=== PATIENT | female | born 1935 | race Caucasian/White ===

== ENCOUNTER → 2017-02-14 | Outpatient (CLI) | payer OTHER ==
[2016-10-07 10:35] VITALS: BP 129/64
[~2017-02-14] MED LIST: ACET325T21 PO; BUPIVACAINE MPF 0.5% 10 ML VIAL for KCIC. IJ ONE; CALC-56 PO; CONTRAST GIVEN MC PRN; DOCU100C5 PO; DOFE250C PO; GLUC1CAP48 PO; HYDR-971 PO; IOHEXOL 300 MG/ML 50 ML VIAL. INT ART ONE; LETR2.5T18 PO; LIDOCAINE 1% Multi-Dose 20 ML VIAL. ID ONE; LORA1TAB47 PO; METO25TA4 PO; MULT1TAB97 PO; UBID200C27 PO; VENL37.5 PO; VITA1CAP PO; methylPREDNISolone ACETATE 40 MG/ML VIAL. INT ART ONE
--- NOTE | 2017-02-14 16:59 | KCIC ---
PROCEDURE Therapeutic right hip injection using fluoroscopic guidance. HISTORY Hip pain. TECHNIQUE The procedure was explained to the patient as were potential risks, including infection, bleeding or allergic reaction. All questions were answered. Informed written and verbal consent was obtained. The hip was prepped and draped in the usual sterile manner. Following administration of local anesthetic, a 22-gauge spinal needle was advanced into the hip joint without difficulty, with care taken to avoid the vascular structures. Stylet was removed and following negative aspiration, a mixture of 4 cc Omnipaque-300, 2 cc (80 mg) Depo-Medrol, 4 cc 0.5% Marcaine and 4 cc 1% lidocaine were injected without difficulty. Fluoroscopy demonstrates uniform and satisfactory distribution of the injection through the hip. The needle was removed. There was good hemostasis at the injection site. The patient left in stable condition without immediate complication. The patient was given postprocedural instructions, instructed to contact us or the emergency room if there are any complications. A single spot image was obtained. FLUOROSCOPY TIME: 34 seconds Electronically signed by: Hussain Peterson MD (Feb 14, 2017 16:58:04)
== END | disposition home or self-care (01) ==
LOC: KCIC 12:14
PROVIDERS: ATTEND Nurse Practitioner Gerontology
DX: M25.551 Pain in right hip (principal); G89.29 Other chronic pain
CPT/HCPCS: 20610; 77002; J1030; Q9967

== ENCOUNTER → 2017-03-14 | Outpatient (CLI) | payer OTHER ==
[2016-10-07 10:35] VITALS: BP 129/64
[~2017-03-14] MED LIST changes: -BUPIVACAINE MPF 0.5% 10 ML VIAL for KCIC. IJ ONE; -CONTRAST GIVEN MC PRN; -IOHEXOL 300 MG/ML 50 ML VIAL. INT ART ONE; -LIDOCAINE 1% Multi-Dose 20 ML VIAL. ID ONE; -methylPREDNISolone ACETATE 40 MG/ML VIAL. INT ART ONE
--- NOTE | 2017-03-14 12:57 | RAD ---
PROCEDURE MRI lumbar spine without contrast. HISTORY Low back pain and right groin pain for 4 months. TECHNIQUE Sagittal T1, sagittal T2, sagittal STIR, axial T1, and axial T2 sequences are provided. COMPARISON None. FINDINGS There are multiple T1 hypointense lesions suspicious for metastatic disease or myeloma. There are lesions noted in the vertebral bodies at the levels of T10, T11, T12, L2, L3, L4, L5, and in the S1 and S2 segments of the sacrum. There is also involvement of the posterior elements on the right and left at L2-L3. There are lesions in the included pelvis. There is no pathologic fracture. There is no malalignment. There is no marrow edema. Vertebral body height is maintained. There is diffuse disc desiccation. The conus medullaris is normal in signal intensity and in position. The numbering system assumes 5 lumbar type vertebral bodies. Findings by individual level are as follows: T10-T11: There is a disc bulge and facet hypertrophy without canal or foraminal compromise. T11-T12: Disc bulge and facet hypertrophy are noted without canal or foraminal compromise. T12-L1: Mild disc bulge and facet hypertrophy are noted without canal or foraminal compromise. L1-L2: Mild disc bulge and mild facet hypertrophy are noted. Facet hypertrophy is greater on the right. There is no canal stenosis or foraminal compromise. L2-L3: Minimal disc bulge and facet hypertrophy are noted without canal or foraminal compromise. L3-L4: Mild disc bulge and jmbm-gd-xaeihxyd facet and ligamentum flavum hypertrophy are noted. Canal stenosis is noted with midline AP diameter of the thecal sac narrowed to 10 millimeters. There is mild lateral recess narrowing. There is minimal right foraminal narrowing. L4-L5: Disc bulge and moderate facet hypertrophy are noted. There is ligamentum flavum hypertrophy. Midline AP diameter of the thecal sac is narrowed to 10 millimeters. There is mild lateral recess narrowing. There is mild left and minimal right foraminal narrowing. L5-S1: Disc osteophyte complex and facet hypertrophy are noted with moderate left and [id number]-ti-[id number] right foraminal narrowing. There is no canal stenosis. Carol, nurse for Dr. Kuo, was notified of results at 1225 hours. IMPRESSION - Multiple T1 hypointense lesions throughout the lower thoracic spine, lumbar spine, sacrum, and pelvis compatible with either metastatic disease or myeloma. - Degenerative changes in the lumbar spine without any high-grade canal stenosis. Electronically signed by: Ramesh Reyna MD (Mar 14, 2017 12:55:54)
== END | disposition home or self-care (01) ==
LOC: MRI 12:40
PROVIDERS: ATTEND Family Medicine
DX: M48.06 Spinal stenosis, lumbar region (principal); M47.896 Other spondylosis, lumbar region
CPT/HCPCS: 72148

== ENCOUNTER → 2017-03-20 | Outpatient (CLI) | payer OTHER ==
[2016-10-07 10:35] VITALS: BP 129/64
--- NOTE | 2017-03-20 17:06 | RAD ---
Radionuclide bone scan, 03/20/2017: History: Breast cancer staging, back pain Whole body imaging was performed following IV injection of 24 mCi of technetium 99m MDP. No previous bone scan is available at this time for comparison purposes. The following findings are delineated: 1. There are multiple foci of abnormal activity in the bony pelvis on both sides. This is most prominent in the right ischial region extending to the acetabulum. 2. There are multiple foci of abnormal activity in the thoracic and lumbar spine. 3. Small areas of increased activity are seen in both proximal femurs. 4. There is a focus of increased activity in the calvarium posteriorly on the right. 5. Additional areas of mildly increased activity at both shoulders, wrists and the left knee are probably on an arthritic basis. IMPRESSION: Multifocal abnormalities compatible with osseous metastatic disease with involvement of the bony pelvis, spine, calvarium and proximal femurs as described above.
== END | disposition home or self-care (01) ==
LOC: NM 09:39
PROVIDERS: ATTEND Family Medicine
DX: C41.9 Malignant neoplasm of bone and articular cartilage, unspecified (principal); Z85.3 Personal history of malignant neoplasm of breast
CPT/HCPCS: 78306; 96374; A9503

== ENCOUNTER → 2017-04-04 | Outpatient (CLI) | payer OTHER ==
[~2017-04-04] VITALS: Ht 152.4 cm; Wt 72.6 kg
[2017-04-04] VITALS (10 sets, daily range): BP systolic 105–146; BP diastolic 58–79
[~2017-04-04] MED LIST changes: +HEPARIN PF 500 UNIT/5 ML DISP.SYRIN. IV ONE; +LIDOCAINE 1% / SOD BICARB 8.4% 20 ML VIAL. IJ ONE; +MIDAZOLAM HCL/PF 5 MG/5 ML VIAL. IV ONE; +WARF5TAB7 PO; +fentaNYL PF VIAL 250 MCG/5 ML VIAL IV ONE
[2017-04-04 09:08] LABS: BASO # 0.1 x10^3/uL (0.0-0.2); BASO % 1 % (0-3); EOS % 4 % (0-3); HEMATOCRIT 38.1 % (36.0-47.0); HEMOGLOBIN 12.9 g/dL (12.0-15.5); LYMPH # 1.5 x10^3/uL (1.0-4.8); LYMPH % 24 % (24-48); MEAN CORPUSCULAR HEMOGLOBIN 30 pg (25-35); MEAN CORPUSCULAR HGB CONC 34 g/dL (31-37); MEAN CORPUSCULAR VOLUME 87 fL (79-100); MONO % 7 % (0-9); NEUT % 65 % (31-73); PLATELET COUNT 185 x10^3/uL (140-400); RED BLOOD COUNT 4.37 x10^6/uL (3.50-5.40); RED CELL DISTRIBUTION WIDTH 14.8 % (11.5-14.5); WHITE BLOOD COUNT 6.2 x10^3/uL (4.0-11.0)
[2017-04-04 09:17] LABS: INR 1.2 (0.8-1.1); PROTHROMBIN TIME PATIENT 14.2 SEC (11.7-14.0)
--- NOTE | 2017-04-04 12:28 | PDOC ---
MODERATE SEDATION ASSESSMENT RISKS/ALTERNATIVES Risks/Alternatives Risks and alternatives of this type of sedation and procedure discussed with: RISK/ALTERNATIVES: Patient H & P ON CHART H & P H & P on chart and reviewed for co-morbid conditions and appropriate labs. H&P ON CHART: Yes STATUS PREG STATUS ASSESSED: N/A MEDS/ALLERGIES REVIEWED Meds/Allergies Reviewed Medications and Allergies including time and route of recently administered narcotics and sedatives. MEDS/ALLERGIES REVIEWED: Yes ASA RATING ASA RATING: III AIRWAY ASSESSMENT Airway Assessment Airway patency, oral function limitations, presence of caps, crowns, dentures, partials, and ability to extend neck assessed. AIRWAY ASSESSMENT: Yes MALLAMPATI SCORE MALLAMPATI SCORE: III PRE-SEDATION ASSESSMENT PRE-SEDATION ASSESSMENT: Yes GATO BARBER MD April 04, 2017 12:28
--- NOTE | 2017-04-04 12:34 | PDOC1 ---
History and Physical Date of Procedure Date of Admission 04/04/[address] guided bone bx Indication Indication 81 YO female with invasive lobular breast carcinoma dx in 2006. S/P radical left mastectomy, XRT, and chemotx. Now with multifocal bone lesions, suggesting met disease. Past Medical History Past Medical History See Nursing Pre Procedure PMH Past Surgical History Past Surgical History See Nursing Pre Procedure PSH Current Medications Current Medications Current Medications Lidocaine/Sodium Bicarbonate (Buffered Lidocaine 1%) 20 ml STK-MED ONCE IJ ; Start 04/04/17 at 11:23; Stop 04/04/17 at 11:24; Status DC Lidocaine/Sodium Bicarbonate (Buffered Lidocaine 1%) 20 ml 1X ONCE IJ Last administered on 04/04/17 12:16; Start 04/04/17 at 12:15; Stop 04/04/17 at 12:16 ; Status DC Midazolam HCl (Versed) 5 mg 1X ONCE IV Last administered on 04/04/17 12:17; Start 04/04/17 at 12:15; Stop 04/04/17 at 12:16; Status DC Fentanyl Citrate (Fentanyl 5ml Vial) 250 mcg 1X ONCE IV Last administered on 12:16; Start 04/04/17 at 12:15; Stop 04/04/17 at 12:16; Status DC Active Scripts Active [place] 5-325 Tablet (Acetaminophen/Hydrocodone Bitart) 1 Each Tablet 0.5-1 Tab PO PRN Q6HRS PRN Reported Warfarin Sodium 5 Mg Tablet 5 Mg PO DAILY Metoprolol Tartrate 25 Mg Tablet 12.5 Mg PO BID Claritin-D 12 Hour Tablet (Loratadine/Pseudoephedrine) 1 Each Tab.er.12h 1 Tab PO BID PRN Femara (Letrozole) 2.5 Mg Tablet 1 Tab PO DAILY Glucosamine & Chondroitin Cap (Gluc 2KCL/Chondr/Herrera Hy/Hy Ac) 1 Each Capsule 1 Each PO DAILY Docusate Sodium 100 Mg Capsule 1 Cap PO DAILY Coenzyme Q-10 (Ubidecarenone) 200 Mg Capsule 200 Mg PO DAILY Calcium 500 + Vit D 200 Caplet (Calcium Carbonate/Vitamin D3) 1 Each Tablet 1 Each PO Acetaminophen 325 Mg Tablet 325 Mg PO PRN Vitamin B Complex 1 Each Capsule 1 Each PO Effexor Xr (Venlafaxine Hcl) 37.5 Mg Cap.er.24h 1 Cap PO DAILY Tikosyn (Dofetilide) 250 Mcg Capsule 250 Mcg PO BID Daily Multiple Vitamin (Multivitamin) 1 Each Tablet 1 Each PO DAILY Allergies Allergies: Coded Allergies: No Known Drug Allergies (Unverified , 10/07/16) Physical Exam Vital Signs Vital Signs Date Time Temp Pulse Resp B/P (MAP) Pulse Ox O2 Delivery O2 Flow Rate FiO2 04/04/17 12:16 10 97 Nasal Cannula 2.0 04/04/17 12:13 88 04/04/17 09:39 124/69 (87) Lungs: Clear to auscultation Heart: Regular rate Psych/Mental Status: Mental status NL Diagnostic Data/Imaging Images PMC WBBS from 03/20/17 reviewed. 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 Problems: Plan Plan CT guided bx of right ischium lytic destructive bony lesion, markedly positive on bone scan. GATO BARBER MD April 04, 2017 12:33
--- NOTE | 2017-04-04 12:38 | PDOC ---
Exam Game Show Host Game Show Host Zabrina Occupational Health Nursing Director Occupational Health Nursing Director Isabelle Cates Pre-Procedure Diagnosis Pre-Procedure Diagnosis 81 YO female with invasive lobular breast cancer (dx in 2007). s/p radical mastectomy, XRT, and chemotx. Now with multifocal bone lesions, suggesting metastatic disease. Post-Procedure Diagnosis Post-Procedure Diagnosis Same Procedure Performed Procedure Performed CT guided bx of lytic, destructive right ischial lesion, which is markedly positive on bone scan. Type of Anesthesia Type of Anesthesia Local + Mod sedation Estimated Blood Loss EBL: Minimal Specimens Specimans 1 14G core bx to path in formalin Condition of Patient Condition of Patient Stable. No apparent complication. Disposition Disposition Home from [facility] post recovery, if no problems. F/u with Dr Ayala. Full report to follow. GATO BARBER MD April 04, 2017 12:38
--- NOTE | 2017-04-04 14:07 | RAD ---
CT-guided power drill assisted biopsy of posterior right ischial lytic/destructive bone lesion Indication: 81-year-old female diagnosed with invasive lobular breast cancer in 2006. She is status post radical mastectomy, XRT, and chemotherapy. She now has multiple bone lesions, suggesting widespread osseous metastatic disease. CT-guided bone biopsy has been requested by oncology. Anesthesia: 17 minutes moderate sedation was provided utilizing a total of 2 mg Versed and 100 mcg fentanyl, IV. The patient was appropriately monitored by a qualified independent observer throughout the time of moderate sedation. Procedure: Informed consent was obtained from the patient. She was placed prone on the CT scanner. Preliminary noncontrast CT images were obtained through pelvis. Those images confirmed the presence of a lytic, destructive lesion involving posterior aspect of right ischium. Of note, this lesion was markedly positive on a [facility] whole body bone scan done 03/20/2017. A right posterior skin site suitable for CT-guided biopsy of the lytic/destructive posterior left ischium lesion was selected and marked. That area was prepped and draped in the usual sterile fashion. Conscious sedation was provided with IV Versed and fentanyl. Using aseptic technique, local anesthesia, and CT guidance, and the [employer] power tractor sweeper driver, successful percutaneous entry was achieved through posterior cortex of left ischium. Using CT guidance, the [employer] power tractor sweeper driver was then utilized to obtain a single, 11-gauge core biopsy sample from the destructive posterior left ischial lesion. The biopsy sample was submitted to pathology in formalin. A sterile dressing was applied over the biopsy skin puncture site. Patient tolerated the procedure well without apparent complication. Impression: Successful, uneventful CT-guided bone biopsy, utilizing the [employer] power tractor sweeper driver biopsy system, as described. PQRS compliance statement: One or more of the following individualized dose reduction techniques were utilized for this CT procedure: 1. Automated exposure control. 2. Adjustment of MA and/or KV according to patient size. 3. Iterative reconstruction technique.
--- NOTE | 2017-04-09 08:46 | PATHOLOGY ---
PATHOLOGY REPORT * * * * * * * * FINAL DIAGNOSIS: Bone, right ischium, biopsy: - METASTATIC MODERATELY DIFFERENTIATED ADENOCARCINOMA (please see comment). COMMENT: The morphologic features of the tumor in this case are consistent with a metastatic lobular carcinoma, as the tumor cells are focally arranged in a single file pattern and some of the tumor cells contain intracytoplasmic lumina. This patient's previous breast carcinoma slides from her surgery back in 2006 are not available at this institution for review/comparison. Estrogen and progesterone receptor status will be performed by immunohistochemistry on the tumor cells in tissue block A1. The results will be issued in an addendum report. This case has also been reviewed by Dr. Alexis Erickson M.D., who agrees with the diagnosis. The findings in this case were discussed with Dr. Chin Gerber on 04/08/2017. PROCEDURE REPORT (Order Date: 04/09/2017 00:00) INTERPRETATION: Quantitative image analysis was performed on block A1. Please see next page for scanned image of results. COMMENT: PATHOLOGIST: Amparo Ladd M.D. REPORT ELECTRONICALLY SIGNED BY: Amparo Ladd M.D. DATE/TIME: 04/11/2017 16:06 REPORT ELECTRONICALLY SIGNED BY: Chiqui Treadwell M.D. DATE/TIME: 04/09/2017 08:46 * * * * * * * * GROSS PATHOLOGY: Received in formalin labeled "Heydi Will, right ischial bone biopsy," is a single needle core of jain bone, measuring 1.9 cm in length and 0.2 cm in diameter. The specimen is submitted entirely in cassette A1, following decalcification. (CAA; 04/06/2017) INITIAL CPT CODE(S): A; 01254, 49953(2) Professional services performed by [facility], [address] [facility], [place] [address]. Technical services performed by [facility], [address] [place] [address], [address], [place] [address]. SPECIMEN(S) RECEIVED: A.Bone right ischium CLINICAL HISTORY: Invasive lobular breast cancer 2006, now lytic bone lesions, mastectomy, radiation and chemotherapy PATIENT: HEYDI WILL /AGE: 1 1935 (Age: 81) PATIENT #: [id number] ALT CASE #: SPECIMEN COLLECTION DATE: 04/04/2017 SPECIMEN RECEIVED DATE: 04/04/2017 [facility] - [id number] [place] [address] - PHONE: [phone] * * * END OF REPORT * * *
== END | disposition home or self-care (01) ==
LOC: INTRAD 08:37
PROVIDERS: ATTEND Internal Medicine Hematology & Oncology
DX: M89.9 Disorder of bone, unspecified (principal); Z85.3 Personal history of malignant neoplasm of breast; I48.91 Unspecified atrial fibrillation; F41.9 Anxiety disorder, unspecified; Z86.73 Personal history of transient ischemic attack (TIA), and cerebral infarction without residual deficits; Z90.710 Acquired absence of both cervix and uterus; Z87.39 Personal history of other diseases of the musculoskeletal system and connective tissue; Z86.69 Personal history of other diseases of the nervous system and sense organs
CPT/HCPCS: 20225; 36415; 77012; 85027; 85610; 88307; 88361; C1892; J2250; J3010

== ENCOUNTER → 2017-04-07 | Outpatient (CLI) | payer OTHER ==
[2017-04-04 09:17] VITALS: BP 124/69
[~2017-04-07] MED LIST changes: +CONTRAST GIVEN MC PRN; +GADOBUTROL 7.5 MMOL/7.5 ML VIAL IV ONE; +IOHEXOL 240 MG/ML 50ML VIAL. PO ONE; +IOHEXOL 300 MG/ML 75 ML VIAL IV ONE; -LIDOCAINE 1% / SOD BICARB 8.4% 20 ML VIAL. IJ ONE; -MIDAZOLAM HCL/PF 5 MG/5 ML VIAL. IV ONE; +OXYC5TAB PO; +WARF-78 PO; +WARF2.5T83 PO; -fentaNYL PF VIAL 250 MCG/5 ML VIAL IV ONE
--- NOTE | 2017-04-07 10:55 | RAD ---
Examination: CT chest abdomen pelvis with oral and IV contrast History: History of breast cancer staging. Comparison: CT chest from 05/26/2014 Technique: Axial CT images of the chest abdomen pelvis were performed with IV contrast. Coronal and sagittal reformats performed Oral contrast was used for CT of the abdomen pelvis PQRS Compliance Statement: One or more of the following individualized dose reduction techniques were utilized for this examination: 1. Automated exposure control 2. Adjustment of the mA and/or kV according to patient size 3. Use of iterative reconstruction technique Findings: A right-sided Port-A-Cath is identified. Mild cardiomegaly. Coronary artery calcifications identified. Moderate size hiatal hernia is identified. Minimal atelectasis or scarring changes identified in the left upper lobe of the lung. No evidence of pleural effusion or pneumothorax. There is a 2.4 cm hypodensity identified in the liver, best seen on series 4 image #21 and a smaller hypodensity identified in the right lobe of the liver measuring about 9 mm best seen on series 4 image #31 are new compared to prior exam as compared to partially visualized liver images on the CT chest from 05/26/2014. The visualized spleen, adrenals grossly appears unremarkable. The gallbladder is mildly distended. The stomach is mildly distended. The small bowel is nondilated Feces and gas noted throughout the colon Urinary bladder is mildly distended. The appendix is normal. The bilateral kidneys enhance symmetrically. Moderate aortic atherosclerosis There is moderate degenerative changes identified in the visualized thoracal lumbar spine. There is lytic sclerotic density identified in the right ischial tuberosity region measuring about 5.8 cm. Faint sclerotic density is identified in the lower thoracic vertebral bodies particularly at the T10, T11, T12 vertebral levels probably degeneration with some lytic foci identified in the T5 vertebral body, T9, T10 vertebral bodies, T11 vertebral bodies and L2 vertebral bodies and right iliac bone probably metastasis. Prior changes of left mastectomy. Impression: 1. Hypodense lesions identified in the right lobe of the liver with the largest measuring 2.4 cm appears new compared to prior exam given the history of breast cancer these may be suspicious for metastasis. PET CT scan is recommended for further evaluation. 2. Mixed density lytic, sclerotic lesion identified in the right ischial tuberosity region and multiple lytic foci identified in the thoracic and the lumbar vertebral and in the right iliac bone region as described above probably metastasis. 3. Coronary artery calcifications. 4. Moderate hiatal hernia.
--- NOTE | 2017-04-07 11:17 | RAD ---
PROCEDURE MRI of the brain without and with contrast 04/07/2017 HISTORY History of metastatic breast cancer. TECHNIQUE Unenhanced T1 weighted sagittal and axial and FLAIR, gradient echo, T2 weighted and diffusion weighted axial images of the brain were obtained. After the intravenous administration of 7.5 cc of Gadavist, enhanced T1 weighted sagittal, axial coronal images of the brain were obtained. FINDINGS There is generalized parenchymal atrophy. Patchy and several small scattered areas of increased signal intensity are seen within the periventricular and subcortical white matter of both cerebral hemispheres on the FLAIR and T2 weighted images consistent with areas of mild small vessel ischemic disease. A small enhancing extra-axial mass is seen arising from the posterior inferior aspect of the falx. This measures 1 centimeter in greatest diameter. It is consistent with a meningioma. There is no significant associated mass effect. No acute parenchymal abnormality is seen. No abnormal area of parenchymal contrast enhancement is noted. No meningeal enhancement is seen. No extra-axial fluid collection is noted. There is no MRI evidence of acute ischemia/infarction. Mild mucosal thickening is seen scattered throughout the paranasal sinuses. There are minimal bilateral mastoid effusions. Normal flow voids are seen within the major vascular structures surrounding the brain parenchyma. IMPRESSION No acute parenchymal abnormality is seen. Specifically there is no MRI evidence of metastatic disease involving the brain parenchyma. Electronically signed by: Chin Feliciano MD (April 07, 2017 11:16:31)
== END | disposition home or self-care (01) ==
LOC: CT 07:32
PROVIDERS: ATTEND Internal Medicine Hematology & Oncology
DX: C50.912 Malignant neoplasm of unspecified site of left female breast (principal); I48.91 Unspecified atrial fibrillation; Z79.01 Long term (current) use of anticoagulants; Z85.3 Personal history of malignant neoplasm of breast
CPT/HCPCS: 70553; 71260; 74177; Q9966; Q9967

== ENCOUNTER 2017-05-25 12:55 | Inpatient (IN) | payer OTHER ==
[~2017-05-25] VITALS: Ht 165.1 cm; Wt 75.0 kg
[~2017-05-25 12:55] MED LIST changes: -CONTRAST GIVEN MC PRN; +DOCU100C28 PO; -DOCU100C5 PO; -GADOBUTROL 7.5 MMOL/7.5 ML VIAL IV ONE; -HEPARIN PF 500 UNIT/5 ML DISP.SYRIN. IV ONE; -IOHEXOL 240 MG/ML 50ML VIAL. PO ONE; -IOHEXOL 300 MG/ML 75 ML VIAL IV ONE; +MORP30TA83 PO
[2017-05-25] MEDS ORDERED: IV NORMAL SALINE 1000ML BAG 1,000 ML IV ONE (13:15)
[2017-05-25] MEDS ORDERED: ONDANSETRON PF 4 MG/2 ML VIAL. IV ONE (13:15)
--- NOTE | 2017-05-25 13:20 | PHYS DOC ---
Past Medical History Past Medical History: A-Fib, Anxiety, Cancer, Other Additional Past Medical Histor: breast cancer Past Surgical History: Cancer Surgery, Hysterectomy, Tonsillectomy, Other Additional Past Surgical Histo: left mastectomy, right leg fracture with hardware Alcohol Use: None Drug Use: None Adult General Chief Complaint Chief Complaint: NAUSEA/VOMITING/DIARRHA HPI HPI Patient is a 81 year old F who presents with increased nausea and vomiting and diarrhea after receiving a shot for what the patient states was for her bones os Friday. Patient currently has breast cancer and is undergoing chemotherapy and received a shot last Friday to increased bone density and since then she has been having increased nausea/vomiting/diarrhea and some generalized abdominal pain. Patient denies any fevers. Patient denies any chest pain or shortness of breath. Patient has no other complaints. Pertinent exam findings: Heart was regular rate and rhythm without murmurs Lungs are clear to auscultation bilaterally without crackles wheezes or rales Abdomen soft nontender bowel sounds heard in all 4 quadrants ED course: Patient was seen and evaluated upon arrival, CBC, CMP, lipase, UA, CT scan abdomen pelvis, 1 L normal saline was ordered 1516: EKG is normal sinus rhythm rate of 81 no STEMI 1609: Discussed CC/HP/PMH with Dr. Kuo and recommends admit and consult oncology Pertinent results: CT abd and pelvis: IMPRESSION: 1. Hepatic metastases have increased in size and number since 04/07/2017. 2. Worsening multifocal osseous metastatic disease. 3. New mural thickening involving the distal ileum indicating nonspecific ileitis. This may be on an infectious or ischemic basis. 4. New small bilateral pleural effusions. 5. Moderate sized hiatal hernia. WBC 1.2 Hemoglobin 10.5 Calcium 7.7 MDM: After reviewing the chart, CC/HPI/PMH, physical exam, [lab results], [ radiological results], I believe the patient has intractable abdominal pain and nausea along with a low white count and anemia therefore will admit the patient for further evaluation and management. Review of Systems Review of Systems GEN: Denies fevers, chills, sweats HEENT: Denies blurred vision, sore throat CV: Denies chest pain RESP: Denies shortness of air, cough GI: + n/v/d NEURO: Denies confusion, dizziness MSK: Denies weakness, joint pain/swelling Current Medications Current Medications Current Medications Medications (Trade) Dose Ordered Sig/Criss Start Time Stop Time Status Last Admin Dose Admin Info (Do NOT chart on this entry -- for MONITORING) 1 each PRN DAILY PRN 05/25/17 14:45 05/27/17 14:44 Iohexol (Omnipaque 300 Mg/ml) 75 ml 1X ONCE 05/25/17 14:45 05/25/17 14:46 DC 05/25/17 14:50 75 ML Ondansetron HCl (Zofran) 4 mg 1X ONCE 05/25/17 13:15 05/25/17 13:17 DC 05/25/17 13:57 4 MG Sodium Chloride 1,000 ml @ 1,000 mls/hr 1X ONCE 05/25/17 13:15 05/25/17 14:14 DC 05/25/17 13:57 1,000 MLS/HR Allergies Allergies Allergies Coded Allergies Type Severity Reaction Last Updated Verified No Known Drug Allergies 10/07/16 No Physical Exam Physical Exam GEN.: No apparent distress. Alert and oriented. HEENT: Head is normocephalic, atraumatic NECK: Supple. LUNGS: CTAB. HEART: RRR, S1, S2 present. Peripheral pulses intact ABDOMEN: Soft, nontender. Positive bowel sounds. EXTREMITIES: Without any cyanosis. NEUROLOGIC: Normal speech, normal tone PSYCHIATRIC: Normal affect, normal mood. SKIN: No ulcerations Current Patient Data Vital Signs Vital Signs Date Time Temp Pulse Resp B/P (MAP) Pulse Ox O2 Delivery O2 Flow Rate FiO2 05/25/17 13:08 98.3 75 18 139/65 (89) 92 Room Air 98.3 Lab Values Laboratory Tests Test 05/25/17 14:00 05/25/17 15:47 White Blood Count 1.2 x10^3/uL (4.0-11.0) *L Red Blood Count 3.47 x10^6/uL (3.50-5.40) L Hemoglobin 10.5 g/dL (12.0-15.5) L Hematocrit 30.4 % (36.0-47.0) L Mean Corpuscular Volume 88 fL (79-100) Mean Corpuscular Hemoglobin 30 pg (25-35) Mean Corpuscular Hemoglobin Concent 35 g/dL (31-37) Red Cell Distribution Width 15.3 % (11.5-14.5) H Platelet Count 78 x10^3/uL (140-400) L Neutrophils (%) (Auto) 68 % (31-73) Lymphocytes (%) (Auto) 19 % (24-48) L Monocytes (%) (Auto) 7 % (0-9) Eosinophils (%) (Auto) 6 % (0-3) H Basophils (%) (Auto) 0 % (0-3) Neutrophils # (Auto) 0.8 x10^3uL (1.8-7.7) L Lymphocytes # (Auto) 0.2 x10^3/uL (1.0-4.8) L Monocytes # (Auto) 0.1 x10^3/uL (0.0-1.1) Eosinophils # (Auto) 0.1 x10^3/uL (0.0-0.7) Basophils # (Auto) 0.0 x10^3/uL (0.0-0.2) Segmented Neutrophils % 40 % (35-66) Band Neutrophils % 25 % (0-9) H Lymphocytes % 16 % (24-48) L Monocytes % 7 % (0-10) Eosinophils % 11 % (0-5) H Basophils % 1 % (0-3) Toxic Granulation Mod Dohle Bodies Few Platelet Estimate Decreased (ADEQUATE) Sodium Level 134 mmol/L (136-145) L Potassium Level 3.4 mmol/L (3.5-5.1) L Chloride Level 100 mmol/L (98-107) Carbon Dioxide Level 27 mmol/L (21-32) Anion Gap 7 (6-14) Blood Urea Nitrogen 8 mg/dL (7-20) Creatinine 0.8 mg/dL (0.6-1.0) Estimated GFR (Cockcroft-Gault) 68.7 BUN/Creatinine Ratio 10 (6-20) Glucose Level 100 mg/dL (70-99) H Calcium Level 7.7 mg/dL (8.5-10.1) L Total Bilirubin 0.7 mg/dL (0.2-1.0) Aspartate Amino Transferase (AST) 31 U/L (15-37) Alanine Aminotransferase (ALT) 31 U/L (14-59) Alkaline Phosphatase 99 U/L (46-116) Total Protein 6.2 g/dL (6.4-8.2) L Albumin 2.6 g/dL (3.4-5.0) L Albumin/Globulin Ratio 0.7 (1.0-1.7) L Lipase 158 U/L (73-393) Urine Collection Type Unknown Urine Color Yellow Urine Clarity Clear Urine pH 6.0 Urine Specific [place] 1.025 Urine Protein Negative mg/dL (NEG-TRACE) Urine Glucose (UA) Negative mg/dL (NEG) Urine Ketones (Stick) Trace mg/dL (NEG) Urine Blood Trace (NEG) Urine Nitrite Negative (NEG) Urine Bilirubin Negative (NEG) Urine Urobilinogen Dipstick 0.2 mg/dL (0.2 mg/dL) Urine Leukocyte Esterase Trace (NEG) Urine RBC 1-2 /HPF (0-2) Urine WBC Occ /HPF (0-4) Urine Squamous Epithelial Cells Occ /LPF Urine Bacteria Few /HPF (0-FEW) Urine Hyaline Casts Few /HPF Urine Mucus Mod /LPF Laboratory Tests 05/25/17 14:00 Laboratory Tests 05/25/17 14:00 EKG EKG 1516: EKG is normal sinus rhythm rate of 81 no STEMI[] Radiology/Procedures Radiology/Procedures CT Abd and Pelvis: IMPRESSION: 1. Hepatic metastases have increased in size and number since 04/07/2017. 2. Worsening multifocal osseous metastatic disease. 3. New mural thickening involving the distal ileum indicating nonspecific ileitis. This may be on an infectious or ischemic basis. 4. New small bilateral pleural effusions. 5. Moderate sized hiatal hernia. [] Course & Med Decision Making Course & Med Decision Making Pertinent Labs and Imaging studies reviewed. (See chart for details) [] Dragon Disclaimer Dragon Disclaimer This electronic medical record was generated, in whole or in part, using a voice recognition dictation system. Departure Departure Impression: Primary Impression: Intractable abdominal pain Additional Impressions: Hypocalcemia Anemia Disposition: 09 ADMITTED INPATIENT Admitting Physician: Hussain uKo Condition: STABLE Referrals: HUSSAIN KUO MD (PCP) Problem Qualifiers Additional Impressions: Anemia Anemia type: unspecified type Qualified Codes: D64.9 - Anemia, unspecified SRIKANTH VALLEJO DO May 25, 2017 13:20
[2017-05-25 14:10] LABS: BASO % 0 % (0-3); EOS % 6 % (0-3); HEMATOCRIT 30.4 % (36.0-47.0); HEMOGLOBIN 10.5 g/dL (12.0-15.5); LYMPH # 0.2 x10^3/uL (1.0-4.8); LYMPH % 19 % (24-48); MEAN CORPUSCULAR HEMOGLOBIN 30 pg (25-35); MEAN CORPUSCULAR HGB CONC 35 g/dL (31-37); MEAN CORPUSCULAR VOLUME 88 fL (79-100); MONO % 7 % (0-9); NEUT % 68 % (31-73); PLATELET COUNT 78 x10^3/uL (140-400); RED BLOOD COUNT 3.47 x10^6/uL (3.50-5.40); RED CELL DISTRIBUTION WIDTH 15.3 % (11.5-14.5)
[2017-05-25 14:17] LABS: WHITE BLOOD COUNT 1.2 x10^3/uL (4.0-11.0)
[2017-05-25 14:22] LABS: CALCIUM 7.7 mg/dL (8.5-10.1); CREATININE 0.8 mg/dL (0.6-1.0); GFR 68.7; POTASSIUM 3.4 mmol/L (3.5-5.1)
[2017-05-25 14:28] LABS: ALBUMIN 2.6 g/dL (3.4-5.0); ALBUMIN/GLOBULIN RATIO 0.7 (1.0-1.7); TOTAL BILIRUBIN 0.7 mg/dL (0.2-1.0); TOTAL PROTEIN 6.2 g/dL (6.4-8.2)
[2017-05-25 14:40] LABS: % BASOS 1 % (0-3); % EOS 11 % (0-5)
[2017-05-25 14:42] LABS: PLT ESTIMATE DECREASED (ADEQUATE); TOXIC GRANULATION MOD
[2017-05-25] MEDS ORDERED: IOHEXOL 300 MG/ML 75 ML VIAL IV ONE (14:45)
[2017-05-25] MEDS ORDERED: CONTRAST GIVEN MC PRN (14:45)
--- NOTE | 2017-05-25 15:49 | RAD ---
CT of the abdomen and pelvis with contrast, 05/25/2017: History: Nausea and vomiting, breast cancer Multidetector CT imaging was performed following an IV bolus injection of iodinated contrast material. No oral contrast material was administered. Comparison is made to a study from 04/07/2017. There is now a small amount of bilateral pleural fluid which was not evident on the previous study. There is mild linear atelectasis and/or scarring in the lung bases. Coronary artery calcifications are present. There is a moderate-sized hiatal hernia. There are several ill-defined low density lesions in the liver. These have increased in size and number since the previous study. The largest of these lies centrally in the liver and measures 2.7 cm. The findings are compatible with hepatic metastases. The gallbladder is unremarkable. No pancreatic abnormality is seen. The spleen is of normal size. No renal or adrenal abnormality is detected. There is moderate aortoiliac calcific plaquing. No abdominal or pelvic adenopathy is seen. The uterus is surgically absent. There is a moderate amount of stool scattered throughout the colon. A few small scattered colonic diverticula are evident. The small bowel loops are not dilated. There is mural thickening involving the distal ileum extending to the ileocecal valve level which is new. There is mild adjacent streaky inflammation in the adjacent fat. No free air is evident in the abdomen. There appears to be a trace amount of free fluid in the pelvis. There are scattered lytic and sclerotic foci in the bones. This includes multiple foci in the spine and in the right iliac bone. Some of these lesions have progressed. IMPRESSION: 1. Hepatic metastases have increased in size and number since 04/07/2017. 2. Worsening multifocal osseous metastatic disease. 3. New mural thickening involving the distal ileum indicating nonspecific ileitis. This may be on an infectious or ischemic basis. 4. New small bilateral pleural effusions. 5. Moderate sized hiatal hernia. PQRS Compliance Statement: One or more of the following individualized dose reduction techniques were utilized for this examination: 1. Automated exposure control 2. Adjustment of the mA and/or kV according to patient size 3. Use of iterative reconstruction technique
[2017-05-25 15:55] LABS: BILIRUBIN,URINE NEGATIVE (NEG); GLUCOSE,URINE NEGATIVE (NEG); NITRITE,URINE NEGATIVE (NEG); PROTEIN,URINE NEGATIVE (NEG-TRACE); UROBILINOGEN,URINE 0.2 mg/dL (0.2 mg/dL)
[2017-05-25 16:01] LABS: BACTERIA,URINE FEW /HPF (0-FEW); WBC,URINE OCC /HPF (0-4)
[2017-05-25 16:02] LABS: SQUAMOUS EPITHELIAL CELL,UR OCC /LPF
--- NOTE | 2017-05-25 16:43 | EKG ---
[facility] [address] [place] [address] Test Date: 2017-05-25 Test Time: 15:12:19 Pat Name: BRENTON CARRANZA Department: Room: Gender: F [employer] Machine Operator: : [id number] Requested By: SRIKANTH VALLEJO Order Number: [id number] Reading MD: Measurements Intervals [place] Rate: 81 P: -90 RI: 148 QRS: 48 QRSD: 94 T: 43 QT: 416 QTc: 484 Interpretive Statements SINUS RHYTHM QRS(T) CONTOUR ABNORMALITY CONSIDER ANTEROSEPTAL MYOCARDIAL DAMAGE PROLONGED QT RI6.01 Unconfirmed report No previous ECG available for comparison
--- NOTE | 2017-05-25 16:51 | ACF ---
Admission Forms Criteria ABDOMINAL PAIN Clinical Indications for Admission to Inpatient Care (Place 'X' for any and all applicable criteria): Admission is indicated for ANY ONE of the following(1)(2)(3)(4)(5): [X]I. Inpatient admission required rather than observation care (Also use Abdominal Pain: Observation Care, as appropriate) because of ANY ONE of the following: [X]a) Severe pain requiring acute inpatient management [ ]b) Identification of etiology/finding that requires inpatient care (eg, aortic dissection, free air) [ ]c) Absent bowel sounds with complete ileus(6) [ ]d) Suspected toxic megacolon [ ]e) Severe electrolyte abnormalities requiring inpatient care [ ]f) High fever or infection requiring inpatient admission as indicated by ANY ONE of following(7)(8): [ ] i) Appropriate outpatient or observational care antimicrobial treatment unavailable, not effective, or not feasible [ ] ii) Documented bacteremia [ ] iii) Temperature > 104.9 degrees F (oral) [ ] iv) T >103.1 F (oral) or < 96.8 F(rectal) that does not respond to all emergency treatment measures [ ]g) Signs of intestinal obstruction [B] [ ]h) Hemodynamic instability [ ]i) IV fluid to replace significant ongoing losses (greater than 3 L/m2 per day) (12)(13) [ ]j) Percutaneous or open drainage (eg, abscess, biliary tract ) procedures [ ]k) Parenteral nutrition regimen that must be implemented on inpatient basis [ ]l) Other condition,treatment or monitoring requiring inpatient admission. [ ]II. Peritoneal signs present [ ]III. Surgery needed that cannot be performed on an ambulatory basis. [ ]IV. Evaluation requires patient to not eat or drink for extended period ( eg, more than 24 hours). [ ]V. Contraindications and/or Inappropriate clinical situations for Observational Care in patients with abdominal pain, when ANY ONE of the following is required: [ ]a) Thorough evaluation is required to prevent catastrophic events due to delays in diagnosing (e.g.Mesenteric ischemia) 1,3 [ ]b) Patient with severe pathology or with chronic symptoms unlikely to improve in the ED stay (3) [ ]. General contraindications and/or Inappropriate clinical situations for Observational Care in patients with abdominal pain, when ANY ONE of the following is required: [ ]a) Prediction of prolongation of LOS based on ANY ONE of the following may be considered as a contraindication for observational care 2, 3, 4, 5, 6, 7, 8, 9, 10, 11 [ ]i) Age > 65 yrs. [ ]ii) Patient arriving by ambulance [ ]iii) Patient with high acuity [ ]iv) Patient requiring vital sign monitoring [ ]v) Patient on IV medication [ ]b) Systolic blood pressures 180mmHg 3,12 [ ]c) Patient with altered mental status including delirium and other alteration of consciousness, (3) [ ]d) Patient whose discharge disposition will be to a intermediate home or rehabilitation home should not be managed in Emergency Department Observation Unit. CMS rule requires 3 days hospital stay before such placement.3,13 [ ]e) Patient with failure to thrive due to broad array of etiologies 3,16,17 [ ]f) Inability to ambulate 3,14 Extended stay beyond goal length of stay may be needed for(2)(3): [ ]a) Persistent abdominal pain with suspected intra-abdominal process [ ]b) Diagnosed condition requiring continued stay (e.g., pancreatitis, complicated diverticulitis) [ ]c) Surgery (e.g., colectomy) The original [facility] content created by [employer] has been revised. The portions of the content which have been revised are identified through the use of italic text or in bold, and [facility] has neither reviewed nor approved the modified material.All other unmodified content is copyright [employer]. Please see references footnoted in the original [facility] edition 2016 Admission Criteria Met?: Yes JUANITO POTTER May 25, 2017 16:51
[2017-05-25 19:00] VITALS: BP 121/60
[2017-05-25] MEDS ORDERED: TEMA15CA PO (19:11)
[2017-05-25] MEDS ORDERED: LORA10TA68 PO (19:11)
[2017-05-25] MEDS ORDERED: PALB125C PO (19:11)
[2017-05-25] MEDS ORDERED: CYAN10005 PO (19:11)
[2017-05-25] MEDS ORDERED: ONDA4TAB12 PO (19:16)
[2017-05-25] MEDS ORDERED: HYDR-2758 PO (19:17)
[2017-05-25] MEDS ORDERED: ONDANSETRON ODT 4 MG TAB.RAPDIS. PO PRN (19:45)
[2017-05-25 20:13] LABS: PROTHROMBIN TIME PATIENT 42.4 SEC (11.7-14.0)
[2017-05-25 20:15] LABS: INR 4.8 (0.8-1.1)
[2017-05-25] MEDS ORDERED: CETIRIZINE HCL 10 MG TABLET. PO SCH (21:00)
[2017-05-25] MEDS ORDERED: UBIDECARENONE 200 MG PO SCH (21:00)
[2017-05-25] MEDS ORDERED: VITAMIN B COMPLEX TABLET. PO SCH (21:00)
[2017-05-25] MEDS ORDERED: DOFETILIDE 250 MCG CAPSULE PO SCH (21:00)
[2017-05-25] MEDS: CYANOCOBALAMIN (VITAMIN B-12) 1,000 MCG TABLET. PO SCH (21:56)
[2017-05-25] MEDS: METOPROLOL TART IMMED RELEASE 25 MG TABLET. PO SCH (21:57)
[2017-05-25] MEDS: MORPHINE ER 30 MG TABLET.ER PO SCH (21:57)
[2017-05-25] MEDS: VENLAFAXINE XR 37.5 MG CAP.ER.24H. PO SCH (21:58)
[2017-05-25] MEDS: LETROZOLE 2.5 MG TABLET. PO SCH (22:03)
[2017-05-25] MEDS: TEMAZEPAM 15 MG CAPSULE PO PRN (22:21)
[2017-05-25 23:00] VITALS: BP 115/59
[2017-05-26 03:00] VITALS: BP 121/65
[2017-05-26 07:30] VITALS: BP 143/59
[2017-05-26] MEDS: VENLAFAXINE XR 37.5 MG CAP.ER.24H. PO SCH ×2 (08:09→20:23)
[2017-05-26] MEDS: MORPHINE ER 30 MG TABLET.ER PO SCH ×2 (08:10→20:22)
[2017-05-26] MEDS: METOPROLOL TART IMMED RELEASE 25 MG TABLET. PO SCH ×2 (08:11→20:23)
--- NOTE | 2017-05-26 08:33 | PDOC1 ---
History and Physical Date of Admission Date of Admission DATE: 05/26/17 TIME: 08:31 Current Problem List Problem List Problems Medical Problems: (1) Anemia Status: Acute (2) Hypocalcemia Status: Acute Problems: Current Medications Current Medications Current Medications Sodium Chloride 1,000 ml @ 1,000 mls/hr 1X ONCE IV Last administered on 13:57; Start 05/25/17 at 13:15; Stop 05/25/17 at 14:14; Status DC Ondansetron HCl (Zofran) 4 mg 1X ONCE IV Last administered on 05/25/17 13:57; Start 05/25/17 at 13:15; Stop 05/25/17 at 13:17; Status DC Iohexol (Omnipaque 300 Mg/ml) 75 ml 1X ONCE IV Last administered on 05/25/17 14:50; Start 05/25/17 at 14:45; Stop 05/25/17 at 14:46; Status DC Info (Do NOT chart on this entry -- for MONITORING) 1 each PRN DAILY PRN MC SEE COMMENTS; Start 05/25/17 at 14:45; Stop 05/27/17 at 14:44 Acetaminophen (Tylenol) 325 mg PRN Q4HRS PRN PO MILD PAIN / TEMP; Start at 19:45 Calcium/Vitamin D (Oscal D 500mg/ 200uts) 1 tab DAILY PO ; Start 05/26/17 at 09: 00 Cyanocobalamin (Vitamin B-12) 1,000 mcg HS PO Last administered on 05/25/17 21: 56; Start 05/25/17 at 21:00 Dofetilide (Tikosyn) 250 mcg BID PO Last administered on 05/25/17 22:50; Start 05/25/17 at 21:00; Stop 05/25/17 at 21:10; Status DC Acetaminophen/ Hydrocodone Bitart (Lortab 5/325) 1 tab PRN Q4HRS PRN PO PAIN; Start 05/25/17 at 19:45 Letrozole (Femara) 2.5 mg HS PO Last administered on 05/25/17 22:03; Start 05/25 at 21:00 Metoprolol Tartrate (Lopressor) 12.5 mg BID PO Last administered on 05/26/17 08 :11; Start 05/25/17 at 21:00 Morphine Sulfate (Ms Contin) 30 mg BID PO Last administered on 05/26/17 08:10; Start 05/25/17 at 21:00 Ondansetron HCl (Zofran Odt) 4 mg PRN Q6HRS PRN PO NAUSEA; Start 05/25/17 at 19: 45 Temazepam (Restoril) 15 mg PRN QHS PRN PO INSOMNIA Last administered on 22:21; Start 05/25/17 at 19:45 Venlafaxine HCl (Effexor Xr) 37.5 mg BID PO Last administered on 05/26/17 08:09 ; Start 05/25/17 at 21:00 Warfarin Sodium (Coumadin) 2.5 mg QTUTHSASU PO ; Start 05/27/17 at 16:00; Stop at 16:00; Status DC Warfarin Sodium (Coumadin) 5 mg QMWF PO ; Start 05/26/17 at 16:00; Stop 05/26/17 at 16:00; Status DC Non-Formulary Medication 1 each DAILY PO ; Start 05/26/17 at 09:00; Stop 05/26/17 at 09:00; Status DC Cetirizine HCl (ZyrTEC) 10 mg QHS PO Last administered on 05/25/17 21:56; Start 05/25/17 at 21:00 Multivitamins (Thera M Plus) 1 tab DAILY PO ; Start 05/26/17 at 09:00 Non-Formulary Medication 200 mg HS PO ; Start 05/25/17 at 21:00; Stop 05/25/17 at 21:00; Status DC Vitamin B Complex (Wai B) 1 tab QHS PO Last administered on 05/25/17 21:56; Start 05/25/17 at 21:00 Warfarin Sodium (Coumadin Per Physician) 1 each PRN DAILY PRN MC SEE COMMENTS; Start 05/25/17 at 20:00 Dofetilide (Tikosyn) 250 mcg BID PO ; Start 05/26/17 at 09:00 Active Scripts Active Reported Hydrocodone-Apap 5-325 (Hydrocodone Bit/Acetaminophen) 1 Each Tablet 1 Tab PO PRN Q4HRS PRN Ondansetron Odt (Ondansetron) 4 Mg Tab.rapdis 1 Tab PO PRN Q6-8HRS PRN Claritin (Loratadine) 10 Mg Tablet 10 Mg PO HS Temazepam 15 Mg Capsule 15 Mg PO HS PRN Ibrance (Palbociclib) 125 Mg Capsule 125 Mg PO HS Vitamin B-12 (Cyanocobalamin (Vitamin B-12)) 1,000 Mcg Tablet 1,000 Mcg PO HS Ms Contin (Morphine Sulfate) 30 Mg Tablet.er 30 Mg PO BID Coumadin (Warfarin Sodium) 5 Mg Tablet 5 Mg PO [id number] Coumadin (Warfarin Sodium) 2.5 Mg Tablet 2.5 Mg PO [id number] Metoprolol Tartrate 25 Mg Tablet 12.5 Mg PO BID Femara (Letrozole) 2.5 Mg Tablet 1 Tab PO HS Glucosamine & Chondroitin Cap (Gluc 2KCL/Chondr/Herrera Hy/Hy Ac) 1 Each Capsule 1 Each PO DAILY Coenzyme Q-10 (Ubidecarenone) 200 Mg Capsule 200 Mg PO HS Calcium 500 + Vit D 200 Caplet (Calcium Carbonate/Vitamin D3) 1 Each Tablet 1 Each PO DAILY Acetaminophen 325 Mg Tablet 325 Mg PO PRN Vitamin B Complex 1 Each Capsule 1 Each PO HS Effexor Xr (Venlafaxine Hcl) 37.5 Mg Cap.er.24h 1 Cap PO BID Tikosyn (Dofetilide) 250 Mcg Capsule 250 Mcg PO BID Daily Multiple Vitamin (Multivitamin) 1 Each Tablet 1 Each PO HS Allergies Allergies: Coded Allergies: No Known Drug Allergies (Unverified , 10/07/16) Vitals Vitals Vital Signs Date Time Temp Pulse Resp B/P (MAP) Pulse Ox O2 Delivery O2 Flow Rate FiO2 05/26/17 08:11 76 143/59 05/26/17 08:10 20 Room Air 05/26/17 03:00 97.5 93 97.5 Labs Labs Laboratory Tests Test 05/25/17 14:00 05/25/17 15:47 05/25/17 16:16 White Blood Count 1.2 x10^3/uL (4.0-11.0) Red Blood Count 3.47 x10^6/uL (3.50-5.40) Hemoglobin 10.5 g/dL (12.0-15.5) Hematocrit 30.4 % (36.0-47.0) Mean Corpuscular Volume 88 fL (79-100) Mean Corpuscular Hemoglobin 30 pg (25-35) Mean Corpuscular Hemoglobin Concent 35 g/dL (31-37) Red Cell Distribution Width 15.3 % (11.5-14.5) Platelet Count 78 x10^3/uL (140-400) Neutrophils (%) (Auto) 68 % (31-73) Lymphocytes (%) (Auto) 19 % (24-48) Monocytes (%) (Auto) 7 % (0-9) Eosinophils (%) (Auto) 6 % (0-3) Basophils (%) (Auto) 0 % (0-3) Neutrophils # (Auto) 0.8 x10^3uL (1.8-7.7) Lymphocytes # (Auto) 0.2 x10^3/uL (1.0-4.8) Monocytes # (Auto) 0.1 x10^3/uL (0.0-1.1) Eosinophils # (Auto) 0.1 x10^3/uL (0.0-0.7) Basophils # (Auto) 0.0 x10^3/uL (0.0-0.2) Segmented Neutrophils % 40 % (35-66) Band Neutrophils % 25 % (0-9) Lymphocytes % 16 % (24-48) Monocytes % 7 % (0-10) Eosinophils % 11 % (0-5) Basophils % 1 % (0-3) Toxic Granulation Mod Dohle Bodies Few Platelet Estimate Decreased (ADEQUATE) Prothrombin Time 42.4 SEC (11.7-14.0) Prothromb Time International Ratio 4.8 (0.8-1.1) Sodium Level 134 mmol/L (136-145) Potassium Level 3.4 mmol/L (3.5-5.1) Chloride Level 100 mmol/L (98-107) Carbon Dioxide Level 27 mmol/L (21-32) Anion Gap 7 (6-14) Blood Urea Nitrogen 8 mg/dL (7-20) Creatinine 0.8 mg/dL (0.6-1.0) Estimated GFR (Cockcroft-Gault) 68.7 BUN/Creatinine Ratio 10 (6-20) Glucose Level 100 mg/dL (70-99) Calcium Level 7.7 mg/dL (8.5-10.1) Total Bilirubin 0.7 mg/dL (0.2-1.0) Aspartate Amino Transf (AST/SGOT) 31 U/L (15-37) Alanine Aminotransferase (ALT/SGPT) 31 U/L (14-59) Alkaline Phosphatase 99 U/L (46-116) Total Protein 6.2 g/dL (6.4-8.2) Albumin 2.6 g/dL (3.4-5.0) Albumin/Globulin Ratio 0.7 (1.0-1.7) Lipase 158 U/L (73-393) Urine Collection Type Unknown Urine Color Yellow Urine Clarity Clear Urine pH 6.0 Urine Specific [place] 1.025 Urine Protein Negative mg/dL (NEG-TRACE) Urine Glucose (UA) Negative mg/dL (NEG) Urine Ketones (Stick) Trace mg/dL (NEG) Urine Blood Trace (NEG) Urine Nitrite Negative (NEG) Urine Bilirubin Negative (NEG) Urine Urobilinogen Dipstick 0.2 mg/dL (0.2 mg/dL) Urine Leukocyte Esterase Trace (NEG) Urine RBC 1-2 /HPF (0-2) Urine WBC Occ /HPF (0-4) Urine Squamous Epithelial Cells Occ /LPF Urine Bacteria Few /HPF (0-FEW) Urine Hyaline Casts Few /HPF Urine Mucus Mod /LPF Lactic Acid Level 1.3 mmol/L (0.4-2.0) Laboratory Tests Test 05/25/17 14:00 05/25/17 15:47 05/25/17 16:16 White Blood Count 1.2 x10^3/uL (4.0-11.0) Red Blood Count 3.47 x10^6/uL (3.50-5.40) Hemoglobin 10.5 g/dL (12.0-15.5) Hematocrit 30.4 % (36.0-47.0) Mean Corpuscular Volume 88 fL (79-100) Mean Corpuscular Hemoglobin 30 pg (25-35) Mean Corpuscular Hemoglobin Concent 35 g/dL (31-37) Red Cell Distribution Width 15.3 % (11.5-14.5) Platelet Count 78 x10^3/uL (140-400) Neutrophils (%) (Auto) 68 % (31-73) Lymphocytes (%) (Auto) 19 % (24-48) Monocytes (%) (Auto) 7 % (0-9) Eosinophils (%) (Auto) 6 % (0-3) Basophils (%) (Auto) 0 % (0-3) Neutrophils # (Auto) 0.8 x10^3uL (1.8-7.7) Lymphocytes # (Auto) 0.2 x10^3/uL (1.0-4.8) Monocytes # (Auto) 0.1 x10^3/uL (0.0-1.1) Eosinophils # (Auto) 0.1 x10^3/uL (0.0-0.7) Basophils # (Auto) 0.0 x10^3/uL (0.0-0.2) Segmented Neutrophils % 40 % (35-66) Band Neutrophils % 25 % (0-9) Lymphocytes % 16 % (24-48) Monocytes % 7 % (0-10) Eosinophils % 11 % (0-5) Basophils % 1 % (0-3) Toxic Granulation Mod Dohle Bodies Few Platelet Estimate Decreased (ADEQUATE) Prothrombin Time 42.4 SEC (11.7-14.0) Prothromb Time International Ratio 4.8 (0.8-1.1) Sodium Level 134 mmol/L (136-145) Potassium Level 3.4 mmol/L (3.5-5.1) Chloride Level 100 mmol/L (98-107) Carbon Dioxide Level 27 mmol/L (21-32) Anion Gap 7 (6-14) Blood Urea Nitrogen 8 mg/dL (7-20) Creatinine 0.8 mg/dL (0.6-1.0) Estimated GFR (Cockcroft-Gault) 68.7 BUN/Creatinine Ratio 10 (6-20) Glucose Level 100 mg/dL (70-99) Calcium Level 7.7 mg/dL (8.5-10.1) Total Bilirubin 0.7 mg/dL (0.2-1.0) Aspartate Amino Transf (AST/SGOT) 31 U/L (15-37) Alanine Aminotransferase (ALT/SGPT) 31 U/L (14-59) Alkaline Phosphatase 99 U/L (46-116) Total Protein 6.2 g/dL (6.4-8.2) Albumin 2.6 g/dL (3.4-5.0) Albumin/Globulin Ratio 0.7 (1.0-1.7) Lipase 158 U/L (73-393) Urine Collection Type Unknown Urine Color Yellow Urine Clarity Clear Urine pH 6.0 Urine Specific [place] 1.025 Urine Protein Negative mg/dL (NEG-TRACE) Urine Glucose (UA) Negative mg/dL (NEG) Urine Ketones (Stick) Trace mg/dL (NEG) Urine Blood Trace (NEG) Urine Nitrite Negative (NEG) Urine Bilirubin Negative (NEG) Urine Urobilinogen Dipstick 0.2 mg/dL (0.2 mg/dL) Urine Leukocyte Esterase Trace (NEG) Urine RBC 1-2 /HPF (0-2) Urine WBC Occ /HPF (0-4) Urine Squamous Epithelial Cells Occ /LPF Urine Bacteria Few /HPF (0-FEW) Urine Hyaline Casts Few /HPF Urine Mucus Mod /LPF Lactic Acid Level 1.3 mmol/L (0.4-2.0) VTE Prophylaxis Ordered VTE Prophylaxis Devices: No VTE Pharmacological Prophylaxi: Contraindicated Assessment/Plan Assessment/Plan met breast ca, leukopenia re ibrance, s/p rad tx for bone mets- dnr, will con pall care, comfort care now, follow wbc, hold warf re high inr and low platelets HAWK NICOLAS MD May 26, 2017 08:33
[2017-05-26] MEDS ORDERED: MULTIVITAMIN with MINERAL TABLET. PO SCH (09:00)
[2017-05-26] MEDS ORDERED: NON FORMULARY ITEM (Gluc 2KCL/Chondr/Coll Hy/Hy Ac (Glucosamine & Chondroitin Cap) 1 EACH) PO SCH (09:00)
[2017-05-26] MEDS: DOFETILIDE 125 MCG CAPSULE PO SCH ×2 (09:00→20:23)
[2017-05-26 10:30] VITALS: BP 147/69
--- NOTE | 2017-05-26 12:35 | PDOC2 ---
CONSULT Date of Consult Date of Consult DATE: 05/26/17 TIME: 12:17 Reason for Consult Reason for Consult: Breast cancer Referring Physician Referring Physician: Dr. Hussain Kuo History of Present Illness Reason for Visit: Pt with a history of breast cancer as below: 1. 2006: Diagnosed with T2 N2 M0 ER/ NC positive, HER-2 negative invasive carcinoma of the left breast status post left mastectomy, axillary lymph node dissection with 6/9 lymph nodes involved, chemotherapy with dose dense Adriamycin/Cytoxan/paclitaxel, radiation, and Femara started in July 2007 and continues on it. Previously followed by Dr. Anna Ignacio, transferred care due to insurance reasons. 2. BRCA negative 3. She has chronic mild lymphedema of her left arm and uses a compressive device daily for this 4.September 2016: Experienced a popping sensation in her back. Pain continued through February 2017 where a bone scan showed diffuse osseous metastases. Biopsy of a bone lesion confirmed metastatic moderately differentiated adenocarcinoma of breast origin, ER/ NC positive, HER2 negative. MRI brain was negative. CT chest/abdomen/pelvis showed concerning liver lesions, subsequent PET scan confirmed multiple liver metastases as well. CBC, CMP were unremarkable. CA 27 29 was 86. 5. April 2017: Completed radiation to her right hip, pelvis and L5, also started Letrozole plus ibrance, Xgeva Pt seen in clinic by me last week, had mild intermittent nausea and fatigue, I thought possibly related to radiation which she finished 05/13. She did have worsening generalized abd pain, but it seemed mild and overall sx were better controlled on the MS Contin [address] oRbledo started her on. She reports worsening n/v since then. Balance has worsened. More weak. Very lethargic now. No family present this AM. She states she was due to start Ibrance today again. Past Medical History Past Medical History Breast ca, A fib on anticoag, BPPV Past Surgical History Past Surgical History Mastectomy, BENNY-BSO, Leg surg, ablation Family History Family History 3 sisters with breast ca Social History Social History 1/2 PPD x 12 yr, quit 1964, no alcohol, , very supportive family Current Problem List Problem List Problems Medical Problems: (1) Anemia Status: Acute (2) Hypocalcemia Status: Acute Current Medications Current Medications Current Medications Sodium Chloride 1,000 ml @ 1,000 mls/hr 1X ONCE IV Last administered on 13:57; Start 05/25/17 at 13:15; Stop 05/25/17 at 14:14; Status DC Ondansetron HCl (Zofran) 4 mg 1X ONCE IV Last administered on 05/25/17 13:57; Start 05/25/17 at 13:15; Stop 05/25/17 at 13:17; Status DC Iohexol (Omnipaque 300 Mg/ml) 75 ml 1X ONCE IV Last administered on 05/25/17 14:50; Start 05/25/17 at 14:45; Stop 05/25/17 at 14:46; Status DC Info (Do NOT chart on this entry -- for MONITORING) 1 each PRN DAILY PRN MC SEE COMMENTS; Start 05/25/17 at 14:45; Stop 05/27/17 at 14:44 Acetaminophen (Tylenol) 325 mg PRN Q4HRS PRN PO MILD PAIN / TEMP; Start at 19:45 Calcium/Vitamin D (Oscal D 500mg/ 200uts) 1 tab DAILY PO ; Start 05/26/17 at 09: 00 Cyanocobalamin (Vitamin B-12) 1,000 mcg HS PO Last administered on 05/25/17 21: 56; Start 05/25/17 at 21:00 Dofetilide (Tikosyn) 250 mcg BID PO Last administered on 05/25/17 22:50; Start 05/25/17 at 21:00; Stop 05/25/17 at 21:10; Status DC Acetaminophen/ Hydrocodone Bitart (Lortab 5/325) 1 tab PRN Q4HRS PRN PO PAIN; Start 05/25/17 at 19:45 Letrozole (Femara) 2.5 mg HS PO Last administered on 05/25/17 22:03; Start 05/25 at 21:00 Metoprolol Tartrate (Lopressor) 12.5 mg BID PO Last administered on 05/26/17 08 :11; Start 05/25/17 at 21:00 Morphine Sulfate (Ms Contin) 30 mg BID PO Last administered on 05/26/17 08:10; Start 05/25/17 at 21:00 Ondansetron HCl (Zofran Odt) 4 mg PRN Q6HRS PRN PO NAUSEA; Start 05/25/17 at 19: 45 Temazepam (Restoril) 15 mg PRN QHS PRN PO INSOMNIA Last administered on 22:21; Start 05/25/17 at 19:45 Venlafaxine HCl (Effexor Xr) 37.5 mg BID PO Last administered on 05/26/17 08:09 ; Start 05/25/17 at 21:00 Warfarin Sodium (Coumadin) 2.5 mg QTUTHSASU PO ; Start 05/27/17 at 16:00; Stop at 16:00; Status DC Warfarin Sodium (Coumadin) 5 mg QMWF PO ; Start 05/26/17 at 16:00; Stop 05/26/17 at 16:00; Status DC Non-Formulary Medication 1 each DAILY PO ; Start 05/26/17 at 09:00; Stop 05/26/17 at 09:00; Status DC Cetirizine HCl (ZyrTEC) 10 mg QHS PO Last administered on 05/25/17 21:56; Start 05/25/17 at 21:00; Stop 05/26/17 at 08:31; Status DC Multivitamins (Thera M Plus) 1 tab DAILY PO ; Start 05/26/17 at 09:00; Stop at 09:00; Status DC Non-Formulary Medication 200 mg HS PO ; Start 05/25/17 at 21:00; Stop 05/25/17 at 21:00; Status DC Vitamin B Complex (Wai B) 1 tab QHS PO Last administered on 05/25/17 21:56; Start 05/25/17 at 21:00; Stop 05/26/17 at 08:31; Status DC Warfarin Sodium (Coumadin Per Physician) 1 each PRN DAILY PRN MC SEE COMMENTS; Start 05/25/17 at 20:00 Dofetilide (Tikosyn) 250 mcg BID PO ; Start 05/26/17 at 09:00 Active Scripts Active Reported Hydrocodone-Apap 5-325 (Hydrocodone Bit/Acetaminophen) 1 Each Tablet 1 Tab PO PRN Q4HRS PRN Ondansetron Odt (Ondansetron) 4 Mg Tab.rapdis 1 Tab PO PRN Q6-8HRS PRN Claritin (Loratadine) 10 Mg Tablet 10 Mg PO HS Temazepam 15 Mg Capsule 15 Mg PO HS PRN Ibrance (Palbociclib) 125 Mg Capsule 125 Mg PO HS Vitamin B-12 (Cyanocobalamin (Vitamin B-12)) 1,000 Mcg Tablet 1,000 Mcg PO HS Ms Contin (Morphine Sulfate) 30 Mg Tablet.er 30 Mg PO BID Coumadin (Warfarin Sodium) 5 Mg Tablet 5 Mg PO [id number] Coumadin (Warfarin Sodium) 2.5 Mg Tablet 2.5 Mg PO [id number] Metoprolol Tartrate 25 Mg Tablet 12.5 Mg PO BID Femara (Letrozole) 2.5 Mg Tablet 1 Tab PO HS Glucosamine & Chondroitin Cap (Gluc 2KCL/Chondr/Herrera Hy/Hy Ac) 1 Each Capsule 1 Each PO DAILY Coenzyme Q-10 (Ubidecarenone) 200 Mg Capsule 200 Mg PO HS Calcium 500 + Vit D 200 Caplet (Calcium Carbonate/Vitamin D3) 1 Each Tablet 1 Each PO DAILY Acetaminophen 325 Mg Tablet 325 Mg PO PRN Vitamin B Complex 1 Each Capsule 1 Each PO HS Effexor Xr (Venlafaxine Hcl) 37.5 Mg Cap.er.24h 1 Cap PO BID Tikosyn (Dofetilide) 250 Mcg Capsule 250 Mcg PO BID Daily Multiple Vitamin (Multivitamin) 1 Each Tablet 1 Each PO HS Allergies Allergies: Coded Allergies: No Known Drug Allergies (Unverified , 10/07/16) ROS Review of System 12 point ROS completed and sig for dizziness, balance, fatigue, abd pain, n/v, poor appetite Physical Exam General: Alert, Oriented X3, No acute distress, Other (very fatigued, moreso than a week ago) Lungs: Clear to auscultation, Normal air movement Heart: Other (irregularly irregular, rate controlled) Abdomen: No tenderness Extremities: No edema Neuro: Other (no focal deficits) Psych/Mental Status: Mental status NL, Mood NL Vitals VITALS Vital Signs Date Time Temp Pulse Resp B/P (MAP) Pulse Ox O2 Delivery O2 Flow Rate FiO2 05/26/17 10:30 96.6 66 18 147/69 (95) 94 Room Air 96.6 Labs Labs Laboratory Tests Test 05/25/17 14:00 05/25/17 15:47 05/25/17 16:16 White Blood Count 1.2 x10^3/uL (4.0-11.0) Red Blood Count 3.47 x10^6/uL (3.50-5.40) Hemoglobin 10.5 g/dL (12.0-15.5) Hematocrit 30.4 % (36.0-47.0) Mean Corpuscular Volume 88 fL (79-100) Mean Corpuscular Hemoglobin 30 pg (25-35) Mean Corpuscular Hemoglobin Concent 35 g/dL (31-37) Red Cell Distribution Width 15.3 % (11.5-14.5) Platelet Count 78 x10^3/uL (140-400) Neutrophils (%) (Auto) 68 % (31-73) Lymphocytes (%) (Auto) 19 % (24-48) Monocytes (%) (Auto) 7 % (0-9) Eosinophils (%) (Auto) 6 % (0-3) Basophils (%) (Auto) 0 % (0-3) Neutrophils # (Auto) 0.8 x10^3uL (1.8-7.7) Lymphocytes # (Auto) 0.2 x10^3/uL (1.0-4.8) Monocytes # (Auto) 0.1 x10^3/uL (0.0-1.1) Eosinophils # (Auto) 0.1 x10^3/uL (0.0-0.7) Basophils # (Auto) 0.0 x10^3/uL (0.0-0.2) Segmented Neutrophils % 40 % (35-66) Band Neutrophils % 25 % (0-9) Lymphocytes % 16 % (24-48) Monocytes % 7 % (0-10) Eosinophils % 11 % (0-5) Basophils % 1 % (0-3) Toxic Granulation Mod Dohle Bodies Few Platelet Estimate Decreased (ADEQUATE) Prothrombin Time 42.4 SEC (11.7-14.0) Prothromb Time International Ratio 4.8 (0.8-1.1) Sodium Level 134 mmol/L (136-145) Potassium Level 3.4 mmol/L (3.5-5.1) Chloride Level 100 mmol/L (98-107) Carbon Dioxide Level 27 mmol/L (21-32) Anion Gap 7 (6-14) Blood Urea Nitrogen 8 mg/dL (7-20) Creatinine 0.8 mg/dL (0.6-1.0) Estimated GFR (Cockcroft-Gault) 68.7 BUN/Creatinine Ratio 10 (6-20) Glucose Level 100 mg/dL (70-99) Calcium Level 7.7 mg/dL (8.5-10.1) Total Bilirubin 0.7 mg/dL (0.2-1.0) Aspartate Amino Transf (AST/SGOT) 31 U/L (15-37) Alanine Aminotransferase (ALT/SGPT) 31 U/L (14-59) Alkaline Phosphatase 99 U/L (46-116) Total Protein 6.2 g/dL (6.4-8.2) Albumin 2.6 g/dL (3.4-5.0) Albumin/Globulin Ratio 0.7 (1.0-1.7) Lipase 158 U/L (73-393) Urine Collection Type Unknown Urine Color Yellow Urine Clarity Clear Urine pH 6.0 Urine Specific [place] 1.025 Urine Protein Negative mg/dL (NEG-TRACE) Urine Glucose (UA) Negative mg/dL (NEG) Urine Ketones (Stick) Trace mg/dL (NEG) Urine Blood Trace (NEG) Urine Nitrite Negative (NEG) Urine Bilirubin Negative (NEG) Urine Urobilinogen Dipstick 0.2 mg/dL (0.2 mg/dL) Urine Leukocyte Esterase Trace (NEG) Urine RBC 1-2 /HPF (0-2) Urine WBC Occ /HPF (0-4) Urine Squamous Epithelial Cells Occ /LPF Urine Bacteria Few /HPF (0-FEW) Urine Hyaline Casts Few /HPF Urine Mucus Mod /LPF Lactic Acid Level 1.3 mmol/L (0.4-2.0) Laboratory Tests Test 05/25/17 14:00 05/25/17 15:47 05/25/17 16:16 White Blood Count 1.2 x10^3/uL (4.0-11.0) Red Blood Count 3.47 x10^6/uL (3.50-5.40) Hemoglobin 10.5 g/dL (12.0-15.5) Hematocrit 30.4 % (36.0-47.0) Mean Corpuscular Volume 88 fL (79-100) Mean Corpuscular Hemoglobin 30 pg (25-35) Mean Corpuscular Hemoglobin Concent 35 g/dL (31-37) Red Cell Distribution Width 15.3 % (11.5-14.5) Platelet Count 78 x10^3/uL (140-400) Neutrophils (%) (Auto) 68 % (31-73) Lymphocytes (%) (Auto) 19 % (24-48) Monocytes (%) (Auto) 7 % (0-9) Eosinophils (%) (Auto) 6 % (0-3) Basophils (%) (Auto) 0 % (0-3) Neutrophils # (Auto) 0.8 x10^3uL (1.8-7.7) Lymphocytes # (Auto) 0.2 x10^3/uL (1.0-4.8) Monocytes # (Auto) 0.1 x10^3/uL (0.0-1.1) Eosinophils # (Auto) 0.1 x10^3/uL (0.0-0.7) Basophils # (Auto) 0.0 x10^3/uL (0.0-0.2) Segmented Neutrophils % 40 % (35-66) Band Neutrophils % 25 % (0-9) Lymphocytes % 16 % (24-48) Monocytes % 7 % (0-10) Eosinophils % 11 % (0-5) Basophils % 1 % (0-3) Toxic Granulation Mod Dohle Bodies Few Platelet Estimate Decreased (ADEQUATE) Prothrombin Time 42.4 SEC (11.7-14.0) Prothromb Time International Ratio 4.8 (0.8-1.1) Sodium Level 134 mmol/L (136-145) Potassium Level 3.4 mmol/L (3.5-5.1) Chloride Level 100 mmol/L (98-107) Carbon Dioxide Level 27 mmol/L (21-32) Anion Gap 7 (6-14) Blood Urea Nitrogen 8 mg/dL (7-20) Creatinine 0.8 mg/dL (0.6-1.0) Estimated GFR (Cockcroft-Gault) 68.7 BUN/Creatinine Ratio 10 (6-20) Glucose Level 100 mg/dL (70-99) Calcium Level 7.7 mg/dL (8.5-10.1) Total Bilirubin 0.7 mg/dL (0.2-1.0) Aspartate Amino Transf (AST/SGOT) 31 U/L (15-37) Alanine Aminotransferase (ALT/SGPT) 31 U/L (14-59) Alkaline Phosphatase 99 U/L (46-116) Total Protein 6.2 g/dL (6.4-8.2) Albumin 2.6 g/dL (3.4-5.0) Albumin/Globulin Ratio 0.7 (1.0-1.7) Lipase 158 U/L (73-393) Urine Collection Type Unknown Urine Color Yellow Urine Clarity Clear Urine pH 6.0 Urine Specific [place] 1.025 Urine Protein Negative mg/dL (NEG-TRACE) Urine Glucose (UA) Negative mg/dL (NEG) Urine Ketones (Stick) Trace mg/dL (NEG) Urine Blood Trace (NEG) Urine Nitrite Negative (NEG) Urine Bilirubin Negative (NEG) Urine Urobilinogen Dipstick 0.2 mg/dL (0.2 mg/dL) Urine Leukocyte Esterase Trace (NEG) Urine RBC 1-2 /HPF (0-2) Urine WBC Occ /HPF (0-4) Urine Squamous Epithelial Cells Occ /LPF Urine Bacteria Few /HPF (0-FEW) Urine Hyaline Casts Few /HPF Urine Mucus Mod /LPF Lactic Acid Level 1.3 mmol/L (0.4-2.0) Images Images CT A/P- Worsening osseous at liver mets Assessment/Plan Assessment/Plan 1. Stage IV breast cancer with impressive worsening of liver and bone mets. Started ibrance/ femara 1 mth ago; given significant progression doubt continued use will be helpful. Only option would be palliative chemo which I think would provide more harm than good. Recommended hospice and Dr. Kuo consulted palliative care. 2. Nausea/ vomiting. Likely tumor related. Added dex 4 mg q AM as trial; if no help in a few days, can DC. Will hold off on MRI brain, previously negative and would not do brain RT, other tx anyway. 3. Pancytopenia. Ibrance related. Will improve with holding of medication. 4. Cancer related pain. Steroids may help. Had been improved with MS contin 30 big bid but pt awfully sedated. Defer to Dr. Kuo, palliative care team. S/ p palliative RT to right hip/ spine completed 05/13. D/W Dr. Kuo and Pat from palliative care. Dr. Choudhury will be covering tomorrow if urgent issues arise; otherwise I will return Wed. AMY STOVALL DO May 26, 2017 12:35
[2017-05-26] MEDS: DEXAMETHASONE 4 MG TABLET PO SCH (12:59)
[2017-05-26] MEDS: CALCIUM CARB/VIT D3 500/200 TABLET. PO SCH (12:59)
[2017-05-26] MEDS: HYDROcodone/APAP 5/325MG 1 TAB TABLET PO PRN ×2 (13:00→17:05)
[2017-05-26 14:30] VITALS: BP 113/60
[2017-05-26] MEDS ORDERED: WARFARIN 5 MG TABLET. PO SCH (16:00)
--- NOTE | 2017-05-26 16:55 | PDOC2 ---
PALLIATIVE CARE Palliative Care Note Palliative Care Consult requested by Dr. Kuo to address plan of care Diagnosis; Breast Cancer with mets to bone and liver. On chemotherapy. Radiation therapy completed. Met with patient. Patient slightly lethargic and confused. Reviewed medical condition, labs, imaging. Confirmed Code Status: DNR/DNI Family in agreement with code decisions Discussed goals of care. Family would like to speak with physicians more Discussed hospice as good support if goal is comfort. No decisions. Patient continues to have pain--rates 6-7. States she was "holding off on pain medications at home" Encouraged patient to ask for medication before increased level. Discussed AD. Not sure if patient has document. Requested Laya NGUYEN to assist with document. Plan: DNR/DNI Hospice discussed but no decisions. Family would like more information from physicians. DANIEL PRICE May 26, 2017 16:55
[2017-05-26 19:00] VITALS: BP 131/74
[2017-05-26] MEDS: ACETAMINOPHEN 325 MG TABLET. PO PRN (20:21)
[2017-05-26] MEDS: CYANOCOBALAMIN (VITAMIN B-12) 1,000 MCG TABLET. PO SCH (20:22)
[2017-05-26] MEDS: LETROZOLE 2.5 MG TABLET. PO SCH (20:31)
[2017-05-26 23:10] VITALS: BP 116/63
[2017-05-27] MEDS: HYDROcodone/APAP 5/325MG 1 TAB TABLET PO PRN ×2 (02:53→18:03)
[2017-05-27 06:52] LABS: PROTHROMBIN TIME PATIENT 36.3 SEC (11.7-14.0)
[2017-05-27 07:00] VITALS: BP 134/80
--- NOTE | 2017-05-27 09:17 | PDOC ---
Provider Note Provider Note sleepy but lucid, feels her pain control is ok- wbc pending, inr 4- d/w family , they are not sure re hospice, may or may not want to leave later today, will see what wbc is re ibrance- decadron may have hepled her feel better- i feel use of warfarin in pt w/ progressive liver mets is risk > benefit, they want to continue for now, still holding re high inr HAWK NICOLAS MD May 27, 2017 09:17
[2017-05-27 09:34] LABS: BASO % 0 % (0-3); EOS % 2 % (0-3); HEMATOCRIT 26.6 % (36.0-47.0); HEMOGLOBIN 9.3 g/dL (12.0-15.5); LYMPH # 0.3 x10^3/uL (1.0-4.8); LYMPH % 20 % (24-48); MEAN CORPUSCULAR HEMOGLOBIN 31 pg (25-35); MEAN CORPUSCULAR HGB CONC 35 g/dL (31-37); MEAN CORPUSCULAR VOLUME 87 fL (79-100); MONO % 5 % (0-9); NEUT % 72 % (31-73); PLATELET COUNT 84 x10^3/uL (140-400); RED BLOOD COUNT 3.06 x10^6/uL (3.50-5.40); RED CELL DISTRIBUTION WIDTH 15.1 % (11.5-14.5)
[2017-05-27 09:39] LABS: WHITE BLOOD COUNT 1.4 x10^3/uL (4.0-11.0)
[2017-05-27] MEDS: VENLAFAXINE XR 37.5 MG CAP.ER.24H. PO SCH ×2 (10:15→20:29)
[2017-05-27] MEDS: DEXAMETHASONE 4 MG TABLET PO SCH (10:15)
[2017-05-27] MEDS: METOPROLOL TART IMMED RELEASE 25 MG TABLET. PO SCH ×2 (10:17→20:30)
[2017-05-27] MEDS: MORPHINE ER 30 MG TABLET.ER PO SCH ×2 (10:18→20:28)
[2017-05-27] MEDS: CALCIUM CARB/VIT D3 500/200 TABLET. PO SCH (10:18)
[2017-05-27] MEDS: DOFETILIDE 125 MCG CAPSULE PO SCH ×2 (10:19→20:29)
[2017-05-27 10:55] VITALS: BP 124/65
[2017-05-27 14:47] VITALS: BP 118/64
[2017-05-27] MEDS ORDERED: WARFARIN 2.5 MG TABLET. PO SCH (16:00)
[2017-05-27 19:59] VITALS: BP 121/61
[2017-05-27] MEDS: CYANOCOBALAMIN (VITAMIN B-12) 1,000 MCG TABLET. PO SCH (20:28)
[2017-05-27] MEDS: TEMAZEPAM 15 MG CAPSULE PO PRN (20:30)
[2017-05-27] MEDS: LETROZOLE 2.5 MG TABLET. PO SCH (20:33)
[2017-05-27 23:43] VITALS: BP 108/57
[2017-05-28] MEDS: HYDROcodone/APAP 5/325MG 1 TAB TABLET PO PRN ×3 (04:34→13:22)
[2017-05-28 07:00] VITALS: BP 124/66
[2017-05-28] MEDS: METOPROLOL TART IMMED RELEASE 25 MG TABLET. PO SCH (09:00)
--- NOTE | 2017-05-28 09:03 | PDOC3 ---
Discharge Summary* Admitting Diagnosis Problems Medical Problems: (1) Anemia Status: Acute (2) Hypocalcemia Status: Acute Problems: Final Diagnosis Problems Medical Problems: (1) Anemia Status: Acute (2) Hypocalcemia Status: Acute leukopenia from imbrance wbc 1400 now- pall cre involved, bj hospice consult , is now dnr, on decadron for bone pain, family aware of term prog nosisis- they wish to cont warf for now, will follow inr at home, atrget 2-2.5 Brief Hospital Course Ms. Will is a 81 old [sex] who presented with [ ] Scheduled Calcium Carbonate/Vitamin D3 (Calcium 500 + Vit D 200 Caplet), 1 EACH PO DAILY, (Reported) Cyanocobalamin (Vitamin B-12) (Vitamin B-12), 1,000 MCG PO HS, (Reported) Dofetilide (Tikosyn), 250 MCG PO BID, (Reported) Gluc 2KCL/Chondr/Herrera Hy/Hy Ac (Glucosamine & Chondroitin Cap), 1 EACH PO DAILY, (Reported) Letrozole (Femara), 1 TAB PO HS, (Reported) Loratadine (Claritin), 10 MG PO HS, (Reported) Metoprolol Tartrate (Metoprolol Tartrate), 12.5 MG PO BID, (Reported) Morphine Sulfate Er (Ms Contin), 30 MG PO BID, (Reported) Multivitamin (Daily Multiple Vitamin), 1 EACH PO HS, (Reported) Palbociclib (Ibrance), 125 MG PO HS, (Reported) Ubidecarenone (Coenzyme Q-10), 200 MG PO HS, (Reported) Venlafaxine Hcl (Effexor Xr), 1 CAP PO BID, (Reported) Vitamin B Complex (Vitamin B Complex), 1 EACH PO HS, (Reported) Warfarin Sodium (Coumadin), 2.5 MG PO [id number], (Reported) Warfarin Sodium (Coumadin), 5 MG PO [id number], (Reported) Scheduled PRN Acetaminophen (Acetaminophen), 325 MG PO for MILD PAIN / TEMP, (Reported) Hydrocodone Bit/Acetaminophen (Hydrocodone-Apap 5-325 ), 1 TAB PO PRN Q4HRS PRN for PAIN, (Reported) Ondansetron (Ondansetron Odt), 1 TAB PO PRN Q6-8HRS PRN for NAUSEA, (Reported) Temazepam (Temazepam), 15 MG PO HS PRN for INSOMNIA, (Reported) Time Spent Total time spent with patient [] minutes for coordination of care, counseling, and education. HAWK NICOLAS MD May 28, 2017 09:03
[2017-05-28] MEDS: DOFETILIDE 125 MCG CAPSULE PO SCH (09:13)
[2017-05-28] MEDS: DEXAMETHASONE 4 MG TABLET PO SCH (09:15)
[2017-05-28] MEDS: VENLAFAXINE XR 37.5 MG CAP.ER.24H. PO SCH (09:15)
[2017-05-28] MEDS: CALCIUM CARB/VIT D3 500/200 TABLET. PO SCH (09:16)
[2017-05-28] MEDS: MORPHINE ER 30 MG TABLET.ER PO SCH (09:17)
--- NOTE | 2017-05-28 09:36 | PDOC ---
Subjective: Subjective: Onc f/u- breast cancer Pt with mildly improved energy/ appetite since starting steroids. Pain stable Family thinks PS improved; pt still looks very lethargic. States she doesn't want any tx that isn't helpful. Family with many questions, overwhelmed by rapid growth of cancer. Objective: Vital Signs: Vital Signs Date Time Temp Pulse Resp B/P (MAP) Pulse Ox O2 Delivery O2 Flow Rate FiO2 05/28/17 09:17 Room Air 05/28/17 09:00 78 124/66 05/28/17 07:00 97.5 18 93 97.5 Physical Exam: General: Alert, No acute distress, Other (appears very fatigued, cannot follow conversation) Lungs: Other (no resp distress) Labs/Imaging: CBC unchanged INR 4.0 yesterday Assessment/Plan A/P: 1. Stage IV breast cancer with significant worsening of liver and bone mets. Started ibrance/ femara 1 mth ago; given significant progression would recommend stopping it; will not be able to control this cancer and pt only with worsening fatigue since starting it. Only option would be palliative chemo but also not an option due to poor performance status and it causing more harm than good. Family overwhelmed with how quickly cancer has progressed. Recommended hospice, pt seems agreeable, family reluctant. Per family request, consulted Dr. Robledo for his input as well. 2. Nausea/ vomiting, fatigue. Likely tumor related. Improved dexamethasone, please continue on DC. Will hold off on MRI brain, previously negative and would not do brain RT, other tx anyway. 3. Pancytopenia. Ibrance related. Should improve with holding of medication. No need to keep checking labs however if no active tx planned. 4. Cancer related pain. Improved with steroids. S/p palliative RT to right hip/ spine completed 05/13. Narcotics helpful but pt lethargic. 5. Coagulopathy. Coumadin on hold. Family has wished to continue. Agree with Dr. Kuo that harm outweighs benefits now with erratic po intake, liver function. I spent 30 min with pt/ family from 8:15 to 8:45 AM discussing prognosis, tx options, recommendations for hospice, side effects of meds. 100% of time spent in counseling. D/W Dr. Kuo. They are hoping to DC today. AMY STOVALL DO May 28, 2017 09:36
[2017-05-28 11:00] VITALS: BP 105/45
[2017-05-28] MEDS: ACETAMINOPHEN 325 MG TABLET. PO PRN (11:19)
--- NOTE | 2017-05-28 12:13 | PDOC ---
PROGRESS NOTES Objective Objective Heydi Brown is known to our department. Initially, the patient was diagnosed with breast cancer in 2006, she was staged T2N2Mo, treated with mastectomy, with 6/9 lymph nodes positive. Tumor was ER positive while ME negative, HER2 negative. Patient had chemotherapy followed by Elena. Patient was first seen on 04/23/17. She had multiple painful bone mets. she was then treated with palliative external Radiation to Rt. hip and upper femur, which was completed on 05/13/17. Patient did well with some relief of pain and she started on MSContin and oxycodone. Ate same time patient was found to liver mets. Patient is now admitted with nausia and abdominal pain, and repeat CT abdomen and pelvis has shown more liver mets to be increased. Patient also has pancytopenia. Reviewing the patient today, it is my impression that she has limited options as far as Radiation is treatments. Vital Signs Date Time Temp Pulse Resp B/P (MAP) Pulse Ox O2 Delivery O2 Flow Rate FiO2 05/28/17 11:00 97.9 77 18 105/45 (65) 93 Room Air 97.9 Intake and Output 05/28/17 07:00 Intake Total 1450 ml Balance 1450 ml Intake Oral 1450 ml # Voids 2 Assessment Assessment Problems Medical Problems: (1) Anemia Status: Acute (2) Hypocalcemia Status: Acute Comment Review of Relevant I have reviewed the following items luis alberto (where applicable) has been applied. Labs Laboratory Tests Test 05/27/17 06:20 White Blood Count 1.4 x10^3/uL (4.0-11.0) Red Blood Count 3.06 x10^6/uL (3.50-5.40) Hemoglobin 9.3 g/dL (12.0-15.5) Hematocrit 26.6 % (36.0-47.0) Mean Corpuscular Volume 87 fL (79-100) Mean Corpuscular Hemoglobin 31 pg (25-35) Mean Corpuscular Hemoglobin Concent 35 g/dL (31-37) Red Cell Distribution Width 15.1 % (11.5-14.5) Platelet Count 84 x10^3/uL (140-400) Neutrophils (%) (Auto) 72 % (31-73) Lymphocytes (%) (Auto) 20 % (24-48) Monocytes (%) (Auto) 5 % (0-9) Eosinophils (%) (Auto) 2 % (0-3) Basophils (%) (Auto) 0 % (0-3) Neutrophils # (Auto) 1.0 x10^3uL (1.8-7.7) Lymphocytes # (Auto) 0.3 x10^3/uL (1.0-4.8) Monocytes # (Auto) 0.1 x10^3/uL (0.0-1.1) Eosinophils # (Auto) 0.0 x10^3/uL (0.0-0.7) Basophils # (Auto) 0.0 x10^3/uL (0.0-0.2) Prothrombin Time 36.3 SEC (11.7-14.0) Prothromb Time International Ratio 4.0 (0.8-1.1) Microbiology 05/25/17 Urine Culture - Final, Complete 05/25/17 Urine Culture Result 1 (ABIODUN) - Final, Complete Medications Current Medications Sodium Chloride 1,000 ml @ 1,000 mls/hr 1X ONCE IV Last administered on 13:57; Start 05/25/17 at 13:15; Stop 05/25/17 at 14:14; Status DC Ondansetron HCl (Zofran) 4 mg 1X ONCE IV Last administered on 05/25/17 13:57; Start 05/25/17 at 13:15; Stop 05/25/17 at 13:17; Status DC Iohexol (Omnipaque 300 Mg/ml) 75 ml 1X ONCE IV Last administered on 05/25/17 14:50; Start 05/25/17 at 14:45; Stop 05/25/17 at 14:46; Status DC Info (Do NOT chart on this entry -- for MONITORING) 1 each PRN DAILY PRN MC SEE COMMENTS; Start 05/25/17 at 14:45; Stop 05/27/17 at 14:44; Status DC Acetaminophen (Tylenol) 325 mg PRN Q4HRS PRN PO MILD PAIN / TEMP Last administered on 05/28/17 11:19; Start 05/25/17 at 19:45 Calcium/Vitamin D (Oscal D 500mg/ 200uts) 1 tab DAILY PO Last administered on 09:16; Start 05/26/17 at 09:00 Cyanocobalamin (Vitamin B-12) 1,000 mcg HS PO Last administered on 05/27/17 20: 28; Start 05/25/17 at 21:00 Dofetilide (Tikosyn) 250 mcg BID PO Last administered on 05/25/17 22:50; Start 05/25/17 at 21:00; Stop 05/25/17 at 21:10; Status DC Acetaminophen/ Hydrocodone Bitart (Lortab 5/325) 1 tab PRN Q4HRS PRN PO PAIN Last administered on 05/28/17 09:15; Start 05/25/17 at 19:45 Letrozole (Femara) 2.5 mg HS PO Last administered on 05/27/17 20:33; Start 05/25 at 21:00 Metoprolol Tartrate (Lopressor) 12.5 mg BID PO Last administered on 05/27/17 10 :17; Start 05/25/17 at 21:00 Morphine Sulfate (Ms Contin) 30 mg BID PO Last administered on 05/28/17 09:17; Start 05/25/17 at 21:00 Ondansetron HCl (Zofran Odt) 4 mg PRN Q6HRS PRN PO NAUSEA; Start 05/25/17 at 19: 45 Temazepam (Restoril) 15 mg PRN QHS PRN PO INSOMNIA Last administered on 20:30; Start 05/25/17 at 19:45 Venlafaxine HCl (Effexor Xr) 37.5 mg BID PO Last administered on 05/28/17 09:15 ; Start 05/25/17 at 21:00 Warfarin Sodium (Coumadin) 2.5 mg [id number] PO ; Start 05/27/17 at 16:00; Stop at 16:00; Status DC Warfarin Sodium (Coumadin) 5 mg QMWF PO ; Start 05/26/17 at 16:00; Stop 05/26/17 at 16:00; Status DC Non-Formulary Medication 1 each DAILY PO ; Start 05/26/17 at 09:00; Stop 05/26/17 at 09:00; Status DC Cetirizine HCl (ZyrTEC) 10 mg QHS PO Last administered on 05/25/17 21:56; Start 05/25/17 at 21:00; Stop 05/26/17 at 08:31; Status DC Multivitamins (Thera M Plus) 1 tab DAILY PO ; Start 05/26/17 at 09:00; Stop at 09:00; Status DC Non-Formulary Medication 200 mg HS PO ; Start 05/25/17 at 21:00; Stop 05/25/17 at 21:00; Status DC Vitamin B Complex (Wai B) 1 tab QHS PO Last administered on 05/25/17 21:56; Start 05/25/17 at 21:00; Stop 05/26/17 at 08:31; Status DC Warfarin Sodium (Coumadin Per Physician) 1 each PRN DAILY PRN MC SEE COMMENTS Last administered on 05/27/17 08:20; Start 05/25/17 at 20:00 Dofetilide (Tikosyn) 250 mcg BID PO Last administered on 05/28/17 09:13; Start 05/26/17 at 09:00 Dexamethasone (Decadron) 4 mg [id number] PO Last administered on 05/28/17 09:15 ; Start 05/26/17 at 13:00 Active Scripts Active Reported Hydrocodone-Apap 5-325 (Hydrocodone Bit/Acetaminophen) 1 Each Tablet 1 Tab PO PRN Q4HRS PRN Ondansetron Odt (Ondansetron) 4 Mg Tab.rapdis 1 Tab PO PRN Q6-8HRS PRN Claritin (Loratadine) 10 Mg Tablet 10 Mg PO HS Temazepam 15 Mg Capsule 15 Mg PO HS PRN Ibrance (Palbociclib) 125 Mg Capsule 125 Mg PO HS Vitamin B-12 (Cyanocobalamin (Vitamin B-12)) 1,000 Mcg Tablet 1,000 Mcg PO HS Ms Contin (Morphine Sulfate) 30 Mg Tablet.er 30 Mg PO BID Coumadin (Warfarin Sodium) 5 Mg Tablet 5 Mg PO [id number] Coumadin (Warfarin Sodium) 2.5 Mg Tablet 2.5 Mg PO [id number] Metoprolol Tartrate 25 Mg Tablet 12.5 Mg PO BID Femara (Letrozole) 2.5 Mg Tablet 1 Tab PO HS Glucosamine & Chondroitin Cap (Gluc 2KCL/Chondr/Herrera Hy/Hy Ac) 1 Each Capsule 1 Each PO DAILY Coenzyme Q-10 (Ubidecarenone) 200 Mg Capsule 200 Mg PO HS Calcium 500 + Vit D 200 Caplet (Calcium Carbonate/Vitamin D3) 1 Each Tablet 1 Each PO DAILY Acetaminophen 325 Mg Tablet 325 Mg PO PRN Vitamin B Complex 1 Each Capsule 1 Each PO HS Effexor Xr (Venlafaxine Hcl) 37.5 Mg Cap.er.24h 1 Cap PO BID Tikosyn (Dofetilide) 250 Mcg Capsule 250 Mcg PO BID Daily Multiple Vitamin (Multivitamin) 1 Each Tablet 1 Each PO HS Vitals/I & O Vital Sign - Last 24 Hours 05/27/17 05/27/17 05/27/17 05/27/17 14:47 18:03 19:59 20:00 Temp 98.3 97.9 98.3 97.9 Pulse 70 67 Resp 20 20 18 B/P (MAP) 118/64 (82) 121/61 (81) Pulse Ox 94 92 O2 Delivery Room Air Room Air Room Air Room Air 05/27/17 05/27/17 05/28/17 05/28/17 20:28 23:43 00:45 04:34 Temp 97.7 97.7 Pulse 70 Resp 16 18 15 16 B/P (MAP) 108/57 (74) Pulse Ox 94 95 95 95 O2 Delivery Room Air Room Air Room Air Room Air 05/28/17 05/28/17 05/28/17 05/28/17 05:36 07:00 08:00 09:00 Temp 97.5 97.5 Pulse 78 78 Resp 15 18 B/P (MAP) 124/66 (85) 124/66 Pulse Ox 95 93 O2 Delivery Room Air Room Air 05/28/17 05/28/17 05/28/17 05/28/17 09:15 09:17 10:15 11:00 Temp 97.9 97.9 Pulse 77 Resp 18 B/P (MAP) 105/45 (65) Pulse Ox 93 O2 Delivery Room Air Room Air Room Air Room Air Intake and Output 05/27/17 05/27/17 05/28/17 15:00 23:00 07:00 Intake Total 340 ml 1110 ml Balance 340 ml 1110 ml ANABELLA MENDOZA MD May 28, 2017 12:12
[2017-05-28] MEDS ORDERED: HEPARIN PF 500 UNIT/5 ML DISP.SYRIN. IV ONE (12:30)
== END 2017-05-28 14:22 | disposition hospice, home (50) | DRG 808 ==
LOC: ER 12:55 → 5 NORTH 16:09
PROVIDERS: ADMIT Family Medicine; ATTEND Family Medicine
DX: D61.810 Antineoplastic chemotherapy induced pancytopenia (principal); E43 Unspecified severe protein-calorie malnutrition; C79.51 Secondary malignant neoplasm of bone; C78.7 Secondary malignant neoplasm of liver and intrahepatic bile duct; D68.9 Coagulation defect, unspecified; G89.3 Neoplasm related pain (acute) (chronic); C50.919 Malignant neoplasm of unspecified site of unspecified female breast; T45.1X5A Adverse effect of antineoplastic and immunosuppressive drugs, initial encounter; E83.51 Hypocalcemia; G47.00 Insomnia, unspecified; I48.91 Unspecified atrial fibrillation; I89.0 Lymphedema, not elsewhere classified; K44.9 Diaphragmatic hernia without obstruction or gangrene; Z51.5 Encounter for palliative care; Z66 Do not resuscitate; Z80.3 Family history of malignant neoplasm of breast; Z85.3 Personal history of malignant neoplasm of breast; Z92.3 Personal history of irradiation; Z90.710 Acquired absence of both cervix and uterus; Z90.12 Acquired absence of left breast and nipple
CPT/HCPCS: 36415; 74177; 80053; 81001; 83605; 83690; 85007; 85027; 85610; 87086; 93005; 96361; 96374; A6539; J2405; J7030; J8540; Q9967; 99285-25